=== PATIENT | female | born 1960 | race African-American/Black ===

== ENCOUNTER 2016-10-13 13:05 | Emergency (ER) | payer OTHER ==
[~2016-10-13] VITALS: Ht 154.9 cm; Wt 63.5 kg
[~2016-10-13 13:05] MED LIST: ALBUTEROL2.5 MG/0.1 IH; ALBUTEROL2.5 MG/31 INH; ASPIRIN81 M2 PO; AZITHROMYCIN 2250 MG PO; DIABETA 5MG TABL5 MG PO; ERYTHROMYCIN E3.5 G1 OPHTHALMIC; GLUCOPHAGE PO; GLUCOPHAGE500 MG PO; GUAIFENESIN-CO118 ML PO; IBUPROFEN 600600 M1 PO; INSULIN GLULISINE; LEVAQUIN 500 M500 M1 PO; LEVEMIR INSULIN SC; LISINOPRIL10 MG PO; MEDROL DOSPAK21 TAB PO; METFORMIN HCL500 M2 PO; MULTIVITAMINS PO; NEURONTIN 300300 M1 PO; NOVOLOG100 UNIT/1 SUBQ; PHENERGAN-CODE120 ML PO; PREDNISONE50 MG PO; PROAIR HFA8.5 GM INH; ULTRAM 50MG TAB50 MG PO; UNKNOWN ANTIBIOTIC; VENTOLIN HFA 1818 GM INH
[2016-10-13] MEDS ORDERED: PREDNISONE 20 M20 MG PO (14:10)
[2016-10-13] MEDS ORDERED: PROVENTIL HFA6.7 G1 INH (14:10)
== END 2016-10-13 14:32 | disposition home or self-care (01) ==
LOC: ER 13:05
DX: J40 Bronchitis, not specified as acute or chronic (principal); R05 Cough; E11.9 Type 2 diabetes mellitus without complications; Z88.0 Allergy status to penicillin